=== PATIENT | female | born 2000 | race Caucasian/White ===

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

== ENCOUNTER 2021-04-14 10:57 | Emergency (ER) | payer MEDICAID, OTHER ==
[~2021-04-14] VITALS: Ht 157.5 cm; Wt 65.9 kg
[2021-04-14 10:59] VITALS: BP 141/83
[2021-04-14] MEDS ORDERED: IBUPROFEN 600 MG TABLET PO ONE (12:15)
== END 2021-04-14 13:35 | disposition home or self-care (01) ==
LOC: EMS 10:57
DX: M54.5 Low back pain (principal); Z91.013 Allergy to seafood; V49.9XXA Car occupant (driver) (passenger) injured in unspecified traffic accident, initial encounter; Y93.89 Activity, other specified; Y92.488 Other paved roadways as the place of occurrence of the external cause; Y99.8 Other external cause status
CPT/HCPCS: 99283

== ENCOUNTER 2021-10-17 16:44 | Emergency (ER) | payer MEDICAID ==
[~2021-10-17] VITALS: Ht 157.5 cm; Wt 65.9 kg
[2021-10-17] MEDS ORDERED: ACET-2247 PO (16:49)
[2021-10-17] MEDS ORDERED: KETOROLAC TROMETHAMINE 10 MG TABLET PO ONE (17:30)
[2021-10-17] MEDS ORDERED: METHOCARBAMOL 500 MG TABLET PO ONE (17:30)
[2021-10-17] MEDS ORDERED: NAPR-1025 PO (18:14)
[2021-10-17] MEDS ORDERED: METH-659 PO (18:14)
[2021-10-17] MEDS ORDERED: LIDO1ADH83 TP (18:14)
[2021-10-17 18:23] VITALS: BP 110/59
== END 2021-10-17 18:58 | disposition home or self-care (01) ==
LOC: EMS 16:56
DX: S13.4XXA Sprain of ligaments of cervical spine, initial encounter (principal); S39.012A Strain of muscle, fascia and tendon of lower back, initial encounter; F12.90 Cannabis use, unspecified, uncomplicated; F17.210 Nicotine dependence, cigarettes, uncomplicated; Z91.013 Allergy to seafood; V49.49XA Driver injured in collision with other motor vehicles in traffic accident, initial encounter; Y93.89 Activity, other specified; Y92.89 Other specified places as the place of occurrence of the external cause; Y99.8 Other external cause status
CPT/HCPCS: 72040; 99283

== ENCOUNTER 2021-10-18 13:04 | Emergency (ER) | payer SELFPAY ==
[~2021-10-18] VITALS: Ht 160 cm; Wt 66.0 kg
[~2021-10-18 13:04] MED LIST: ACET-2247 PO; LIDO1ADH83 TP; METH-659 PO; NAPR-1025 PO
[2021-10-18 13:26] VITALS: BP 111/66
[2021-10-18] MEDS ORDERED: BACLOFEN 10 MG TABLET PO ONE (15:00)
[2021-10-18] MEDS ORDERED: KETOROLAC TROMETHAMINE 60 MG/2 ML VIAL IM ONE (15:00)
== END 2021-10-18 16:17 | disposition home or self-care (01) ==
LOC: EMS 13:07
DX: S13.4XXA Sprain of ligaments of cervical spine, initial encounter (principal); F12.90 Cannabis use, unspecified, uncomplicated; F17.210 Nicotine dependence, cigarettes, uncomplicated; M54.89 Other dorsalgia; Z91.013 Allergy to seafood; V49.49XA Driver injured in collision with other motor vehicles in traffic accident, initial encounter; Y93.89 Activity, other specified; Y92.488 Other paved roadways as the place of occurrence of the external cause; Y99.8 Other external cause status
CPT/HCPCS: 72125; 72128; 81025; 96372; 99284; J1885

== ENCOUNTER 2023-12-14 19:21 | Emergency (ER) | payer MEDICAID, OTHER ==
[~2023-12-14] VITALS: Ht 157.5 cm; Wt 65.5 kg
[~2023-12-14 19:21] MED LIST changes: -ACET-2247 PO; -LIDO1ADH83 TP; -METH-659 PO; -NAPR-1025 PO; +PREN-155 PO
[2023-12-14 19:39] VITALS: BP 122/67; PULSE 87; RESP 16; TEMP 98.2
[2023-12-14 20:28] LABS: APPEARANCE,URINE HAZY (CLEAR); BILIRUBIN,URINE NEGATIVE (NEGATIVE); COLOR,URINE LIGHT YELLOW (YELLOW); GLUCOSE, URINE (UA) NEGATIVE (NEGATIVE); KETONES,URINE NEGATIVE (NEGATIVE); LEUKOCYTE ESTERASE ,URINE MODERATE (NEGATIVE); NITRATE,URINE NEGATIVE (NEGATIVE); OCCULT BLOOD,URINE NEGATIVE (NEGATIVE); PH,URINE 6.5 (5.0-8.0); PROTEIN,URINE NEGATIVE (NEGATIVE); SPECIFIC GRAVITIY, URINE 1.019 (1.003-1.030); UROBILINOGEN,URINE <=1.0 mg/dL (<=1.0)
[2023-12-14 20:53] LABS: BACTERIA,URINE Few /HPF (None Seen); RBC,URINE None Seen /HPF (0-2)
== END 2023-12-14 21:50 | disposition left against medical advice (07) ==
LOC: EMS 19:22
DX: B37.9 Candidiasis, unspecified (principal); Z53.21 Procedure and treatment not carried out due to patient leaving prior to being seen by health care provider
CPT/HCPCS: 81001; 87086; 87186

== ENCOUNTER 2024-01-02 16:26 | Emergency (ER) | payer OTHER ==
[~2024-01-02] VITALS: Ht 157.5 cm; Wt 63.6 kg
[2024-01-02 16:34] VITALS: TEMP 97.9
[2024-01-02 17:57] LABS: APPEARANCE,URINE HAZY (CLEAR); BILIRUBIN,URINE NEGATIVE (NEGATIVE); COLOR,URINE LIGHT YELLOW (YELLOW); GLUCOSE, URINE (UA) NEGATIVE (NEGATIVE); KETONES,URINE NEGATIVE (NEGATIVE); LEUKOCYTE ESTERASE ,URINE LARGE (NEGATIVE); NITRATE,URINE NEGATIVE (NEGATIVE); OCCULT BLOOD,URINE MODERATE (NEGATIVE); PROTEIN,URINE 30-70 mg/dL (NEGATIVE); SPECIFIC GRAVITIY, URINE 1.014 (1.003-1.030); UROBILINOGEN,URINE <=1.0 mg/dL (<=1.0)
[2024-01-02 18:10] LABS: BACTERIA,URINE Few /HPF (None Seen); RBC,URINE 26-50 /HPF (0-2); SQUAMOUS EPITHELIAL CELL,UR Few /LPF (None Seen); WBC,URINE 51-100 /HPF (0-5)
[2024-01-02] MEDS ORDERED: TERC80SU4 VG (19:26)
[2024-01-02] MEDS ORDERED: PHEN-674 PO (19:26)
[2024-01-02] MEDS ORDERED: CEPH-558 PO (19:26)
[2024-01-02 19:30] VITALS: BP 127/83; PULSE 75; RESP 18
[2024-01-02] MEDS: PHENAZOPYRIDINE HCL 100 MG TABLET PO ONE (19:33)
[2024-01-02] MEDS: CEPHALEXIN MONOHYDRATE 500 MG CAPSULE PO ONE (19:33)
== END 2024-01-02 19:55 | disposition home or self-care (01) ==
LOC: EMS 16:44
DX: O26.891 Other specified pregnancy related conditions, first trimester (principal); O23.41 Unspecified infection of urinary tract in pregnancy, first trimester; B37.31 Acute candidiasis of vulva and vagina; N39.0 Urinary tract infection, site not specified; Z3A.01 Less than 8 weeks gestation of pregnancy; Z91.013 Allergy to seafood; Z91.040 Latex allergy status
CPT/HCPCS: 81001; 87086; 87186; 99283

== ENCOUNTER 2024-01-07 09:48 | Emergency (ER) | payer OTHER ==
[~2024-01-07] VITALS: Ht 157.5 cm; Wt 65.0 kg
[~2024-01-07 09:48] MED LIST changes: +CEPH-558 PO; +PHEN-674 PO; -PREN-155 PO; +TERC80SU4 VG
[2024-01-07 10:00] VITALS: TEMP 98.6
[2024-01-07] MEDS ORDERED: ACET-66 PO (10:57)
[2024-01-07] MEDS ORDERED: NYST100033 PO (10:57)
[2024-01-07 11:00] VITALS: BP 110/66; PULSE 90; RESP 18
== END 2024-01-07 11:14 | disposition home or self-care (01) ==
LOC: EMS 09:48
DX: J02.8 Acute pharyngitis due to other specified organisms (principal); Z91.013 Allergy to seafood; Z91.041 Radiographic dye allergy status
CPT/HCPCS: 99283; Z7502

== ENCOUNTER 2024-01-18 22:03 | Emergency (ER) | payer OTHER ==
[~2024-01-18] VITALS: Ht 157.5 cm; Wt 66.0 kg
[~2024-01-18 22:03] MED LIST changes: +ACET-66 PO; +NYST100033 PO; -PHEN-674 PO
[2024-01-18 22:13] VITALS: BP 122/69; PULSE 97; RESP 20; TEMP 98.2
[2024-01-18 22:35] LABS: APPEARANCE,URINE TURBID (CLEAR); BILIRUBIN,URINE NEGATIVE (NEGATIVE); COLOR,URINE YELLOW (YELLOW); GLUCOSE, URINE (UA) NEGATIVE (NEGATIVE); KETONES,URINE NEGATIVE (NEGATIVE); LEUKOCYTE ESTERASE ,URINE LARGE (NEGATIVE); NITRATE,URINE NEGATIVE (NEGATIVE); OCCULT BLOOD,URINE LARGE (NEGATIVE); PH,URINE 5.5 (5.0-8.0); PROTEIN,URINE 100-200,SEE CONFIRM mg/dL (NEGATIVE); SPECIFIC GRAVITIY, URINE 1.021 (1.003-1.030); UROBILINOGEN,URINE <=1.0 mg/dL (<=1.0)
[2024-01-18 22:43] LABS: SULFOSALICYLIC ACID,URINE 1+ (Negative)
[2024-01-18 22:44] LABS: BACTERIA,URINE Few /HPF (None Seen); RBC,URINE >100 /HPF (0-2); SQUAMOUS EPITHELIAL CELL,UR Few /LPF (None Seen); WBC,URINE >100 /HPF (0-5)
[2024-01-19] MEDS ORDERED: AMOX500C2 PO (00:07)
[2024-01-19] MEDS: LIDOCAINE/PF 1% 2 ML VIAL IM ONE (00:18)
[2024-01-19] MEDS: CefTRIAXone SODIUM 1 GM/VIAL IM ONE (00:18)
== END 2024-01-19 01:42 | disposition home or self-care (01) ==
LOC: EMS 22:03
DX: O23.42 Unspecified infection of urinary tract in pregnancy, second trimester (principal); N39.0 Urinary tract infection, site not specified; Z3A.14 14 weeks gestation of pregnancy; Z91.013 Allergy to seafood; Z91.014 Allergy to mammalian meats
CPT/HCPCS: 99283; 81001; 87086; 87186; 81002; 96372; J0696; J3490

== ENCOUNTER 2024-03-18 16:26 | Emergency (ER) | payer OTHER ==
[~2024-03-18] VITALS: Ht 162.6 cm; Wt 61.4 kg
[~2024-03-18 16:26] MED LIST changes: +AMOX500C2 PO
[2024-03-18 16:28] VITALS: TEMP 98
[2024-03-18 16:49] LABS: COVID AG,FIA SOURCE NASAL SWAB
[2024-03-18 17:21] LABS: INFLUENZA TYPE A NEGATIVE FOR TYPE A (NEGATIVE); INFLUENZA TYPE B NEGATIVE FOR TYPE B (NEGATIVE)
[2024-03-18 17:47] LABS: SARS-COV2 (COVID) ANTIGEN,FIA Positive (Negative)
[2024-03-18 20:19] LABS: APPEARANCE,URINE CLEAR (CLEAR); BILIRUBIN,URINE NEGATIVE (NEGATIVE); COLOR,URINE YELLOW (YELLOW); GLUCOSE, URINE (UA) NEGATIVE (NEGATIVE); KETONES,URINE 80-100 mg/dL (NEGATIVE); LEUKOCYTE ESTERASE ,URINE LARGE (NEGATIVE); NITRATE,URINE NEGATIVE (NEGATIVE); OCCULT BLOOD,URINE NEGATIVE (NEGATIVE); PROTEIN,URINE 30-70 mg/dL (NEGATIVE); SPECIFIC GRAVITIY, URINE 1.028 (1.003-1.030); UROBILINOGEN,URINE <=1.0 mg/dL (<=1.0)
[2024-03-18 20:57] LABS: RBC,URINE 0-2 /HPF (0-2); SQUAMOUS EPITHELIAL CELL,UR Moderate /LPF (None Seen)
[2024-03-18 20:58] LABS: BACTERIA,URINE Few /HPF (None Seen)
[2024-03-18] MEDS ORDERED: CEPH-558 PO (21:26)
[2024-03-18] MEDS: CEPHALEXIN MONOHYDRATE 500 MG CAPSULE PO ONE (21:32)
[2024-03-18 21:38] VITALS: BP 118/69; PULSE 92; RESP 18
== END 2024-03-18 21:39 | disposition home or self-care (01) ==
LOC: EMS 17:41
DX: O98.512 Other viral diseases complicating pregnancy, second trimester (principal); U07.1 COVID-19; O23.32 Infections of other parts of urinary tract in pregnancy, second trimester; N39.0 Urinary tract infection, site not specified; Z3A.23 23 weeks gestation of pregnancy; Z91.041 Radiographic dye allergy status; Z91.013 Allergy to seafood
CPT/HCPCS: 81001; 87086; 87186; 87804; 99283

== ENCOUNTER 2025-07-14 19:31 | Emergency (ER) | payer OTHER ==
[~2025-07-14] VITALS: Ht 157.5 cm; Wt 68.0 kg
[2025-07-14 19:35] VITALS: TEMP 98.1
[2025-07-14 19:57] LABS: PLATELET COUNT (AUTO) 375 K/uL (150-450); RED BLOOD CELL COUNT(AUTO) 5.03 MIL/uL (4.00-5.20); RED CELL DISTRIBUTION WIDTH 14.5 % (11.5-14.5); WHITE BLOOD COUNT (AUTO) 13.5 K/uL (4.5-11.0)
[2025-07-14 21:18] VITALS: BP 135/86; PULSE 83; RESP 16; O2SAT 100
== END 2025-07-14 21:27 | disposition home or self-care (01) ==
LOC: EMS 19:31
DX: N92.1 Excessive and frequent menstruation with irregular cycle (principal); Z88.8 Allergy status to other drugs, medicaments and biological substances; Z87.440 Personal history of urinary (tract) infections
CPT/HCPCS: 84702; 85025; 86901; 99283